=== PATIENT | male | born 1980 | race Two or more races ===

== ENCOUNTER 2019-10-13 12:58 | Inpatient (IN) | payer BC ==
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
[2019-10-13] MEDS ORDERED: IBUPROFEN 400 MG TABLET (FP) PO PRN (14:21)
[2019-10-13] MEDS ORDERED: MENTHOL/PHENOL 1 EACH UD MM PRN (14:21)
[2019-10-13] MEDS ORDERED: MAG HYDROX/AL HYDROX/SIMETH 30 ML UNIT-DOSE CUP PO PRN (14:21)
[2019-10-13] MEDS ORDERED: NICOTINE POLACRILEX 2 MG GUM BUC PRN (14:21)
[2019-10-13] MEDS ORDERED: BISMUTH SUBSALICYLATE 524 MG/30 ML UD PO PRN (14:21)
[2019-10-13] MEDS ORDERED: MAGNESIUM HYDROX 2400MG/30ML ORAL SUSPENSION 30 ML CUP PO PRN (14:21)
[2019-10-13] MEDS ORDERED: MAGNESIUM CITRATE 300 ML BOTTLE PO PRN (14:21)
[2019-10-13] MEDS ORDERED: ONDANSETRON *ODT* 4 MG TABLET SL PRN (14:21)
[2019-10-13] MEDS ORDERED: diazePAM 5 MG TABLET PO PRN (14:21)
[2019-10-13] MEDS ORDERED: ACETAMINOPHEN 325 MG TABLET (FP) PO PRN ×2 (14:21)
[2019-10-13] MEDS ORDERED: diazePAM 5 MG TABLET PO ONE (14:45)
--- NOTE | 2019-10-13 14:52 | EKG ---
Test Reason : Blood Pressure : / mmHG Vent. Rate : 064 BPM Atrial Rate : 064 BPM P-R Int : 132 ms QRS Dur : 084 ms QT Int : 430 ms P-R-T Axes : 062 100 064 degrees QTc Int : 443 ms NORMAL SINUS RHYTHM RIGHTWARD AXIS BORDERLINE ECG NO PREVIOUS ECGS AVAILABLE Confirmed by Michael Corey MD ([id number]) on 10/13/2019 2:51:56 PM Referred By: Confirmed By:Michael Corey MD
[2019-10-13] MEDS: hydrOXYzine PAMOATE 25 MG CAPSULE (FP) PO PRN (15:25)
[2019-10-13 17:58] LABS: HEMATOCRIT 38.5 % (35.4-49); MCH 31.5 pg (25.7-33.7); MCHC 33.6 g/dl (32.0-35.9); MEAN CELL VOLUME 93.8 fl (80-96); MEAN PLT VOLUME 7.9 fl (7.5-11.1); PLATELET COUNT 257 K/MM3 (134-434); RBC 4.11 M/mm3 (4.00-5.60); RDW 15.4 % (11.9-15.9); WHITE BLOOD COUNT 4.7 K/mm3 (4.0-10.0)
[2019-10-13 17:59] LABS: ALBUMIN 3.5 g/dl (3.4-5.0); BILIRUBIN,TOTAL 0.9 mg/dL (0.2-1); BLOOD UREA NITROGEN 10.5 mg/dL (7-18); CALCIUM 8.9 mg/dL (8.5-10.1); CREATININE 0.7 mg/dL (0.55-1.3)
[2019-10-13] MEDS: MELATONIN 5 MG TABLETS PO SCH (22:50)
[2019-10-13] MEDS: THIAMINE HCL 100 MG TABLET (FP) PO SCH (22:50)
[2019-10-13] MEDS: diazePAM 5 MG TABLET PO SCH (22:50)
[2019-10-14] MEDS: diazePAM 5 MG TABLET PO SCH ×3 (05:54→22:20)
[2019-10-14] MEDS: PRENATAL VITAMINS W/ FOLIC ACID TABLET (FP) PO SCH (09:38)
[2019-10-14] MEDS: NICOTINE 21 MG/24 HOURS TOPICAL PATCH TD SCH (09:38)
--- NOTE | 2019-10-14 11:23 | PN ---
S CIWA - CIWA Score Nausea/Vomitin-No Nausea/No Vomiting Muscle Tremors: 3 Anxiety: 3 Agitation: 1-Slight > Activity Paroxysmal Sweats: 1-Minimal Palms Moist Orientation: 0-Oriented Tacttile Disturbances: 1-Very Mild Itch/Numbness Auditory Disturbances: 0-None Visual Disturbances: 0-None Headache: 0-None Present CIWA-Ar Total Score: 9 B[facility] Progress Note (SOAP) Subjective: 39 years old male was admitted on 10/13/19 for alcohol withdrawal sx management treating with valium detox regiment feels tired prefers to stay in bed today that mr lowe has trouble to fall asleep last night limited conversation with staff Objective: 10/14/19 11:25 Vital Signs - 24 hr 10/13/19 10/13/19 10/13/19 14:05 14:18 16:41 Temperature 98.4 F 97.5 F L 97.1 F L Pulse Rate 90 67 70 Respiratory 18 18 18 Rate Blood Pressure 155/97 157/93 126/69 O2 Sat by Pulse 96 Oximetry (%) 10/13/19 10/14/19 10/14/19 20:39 06:45 08:32 Temperature 97.5 F L 97.9 F 98.6 F Pulse Rate 61 65 81 Respiratory 17 18 18 Rate Blood Pressure 146/81 146/87 129/83 O2 Sat by Pulse 97 95 Oximetry (%) Laboratory Tests 10/13/19 10/13/19 10/13/19 14:00 14:00 14:00 WBC 4.7 RBC 4.11 Hgb 13.0 Hct 38.5 MCV 93.8 MCH 31.5 MCHC 33.6 RDW 15.4 Plt Count 257 MPV 7.9 Sodium 141 Potassium 4.0 Chloride 105 Carbon Dioxide 29 Anion Gap 7 L BUN 10.5 Creatinine 0.7 Est GFR (CKD-EPI)AfAm 135.86 Est GFR (CKD-EPI)NonAf 117.22 Random Glucose 116 H Calcium 8.9 Total Bilirubin 0.9 AST 194 H ALT 176 H Alkaline Phosphatase 241 H Total Protein 8.0 Albumin 3.5 Syphilis Serology Non-reactive COVID-19 (CHRISTIANO) 10/13/19 14:50 WBC RBC Hgb Hct MCV MCH MCHC RDW Plt Count MPV Sodium Potassium Chloride Carbon Dioxide Anion Gap BUN Creatinine Est GFR (CKD-EPI)AfAm Est GFR (CKD-EPI)NonAf Random Glucose Calcium Total Bilirubin AST ALT Alkaline Phosphatase Total Protein Albumin Syphilis Serology COVID-19 (CHRISTIANO) Not detected ast elevation 10/14/19 11:28 repeat ast Assessment: 10/14/19 11:28 alcohol withdrawal Plan: valium regiment
--- NOTE | 2019-10-14 11:59 | CONSULT ---
[facility] Psychiatric Consult - Data Date of interview: 10/14/19 Admission source: [facility] Identifying data: Patient is a 39 year old single male, father of two, unemployed, homeless, and is not currently supported with financial assistance. This is patient's first admission to detox at [facility]. Patient admitted to for alcohol dependence. Substance Abuse History: Smoking Cessation. Smoking history: Current every day smoker. Have you smoked in the past 12 months: Yes. Aproximately how many cigarettes per day: 10. Hx Chewing Tobacco Use: No. Initiated information on smoking cessation: Yes. 'Breaking Loose' booklet given: 10/13/19. - Substance & Tx. History. Hx Alcohol Use: Yes. Hx Substance Use: Yes. Substance Use Type: Alcohol, Marijuana. Hx Substance Use Treatment: Yes (2yrs ago detox at [facility]). - Substances abused. Alcohol. Substance route: Oral. Frequency: Daily. Amount used: 1 liter of vodka. Age of first use: 5. Date of last use: 10/12/19. Marijuana/Hashish. Substance route: Oral. Frequency: 1-3 times last 30 days. Amount used: 1 joint. Age of first use: 13. Date of last use: 10/12/19 Medical History: Pancreatitis,Cirrhosis, Seizure (alcohol related seizures) Psychiatric History: Patient presents as a fatigue and mildly lethargic. Patient unable to provide a cohesive psychiatric history. Mr. Mistry reports a history of multiple psychiatric hospitalizations at several hospitals including but not limited to [facility] + [facility] + [facility]. Patient unable to recall his most recent psychiatric hospitalization. Mr. Mistry reports a diagnosis of Schizophrenia + Bipolar disorder. Reports past treatment with risperdal and other psychotropic agents he can't recall. Patient is totally lost in follow up care and is not interested in resuming psychotropic medications. History of several suicide attempts via overdose and asphyxiation. At present patient reports feeling tired and sleepy. He denies suicidal/ homicidal ideation, auditory/ visual hallucinations. Physical/Sexual Abuse/Trauma History: Not discussed. Mental Status Exam - Mental Status Exam Alert and Oriented to: Time, Place, Person Cognitive Function: Good Patient Appearance: Unkempt Mood: Withdrawn Affect: Mood Congruent Patient Behavior: Sedated, Fatigued Speech Pattern: Delayed Voice Loudness: Mildly Soft/Quiet Thought Process: Goal Oriented Thought Disorder: Not Present Hallucinations: Denies Suicidal Ideation: Denies Homicidal Ideation: Denies Insight/Judgement: Poor Sleep: Fair Appetite: Fair Muscle strength/Tone: Normal Gait/Station: Other (Gait not observed.) Psychiatric Findings - Problem List ([place] 1, 2,3) (1) Alcohol dependence with withdrawal, uncomplicated Current Visit: Yes Status: Acute (2) Nicotine dependence Current Visit: Yes Status: Acute Qualifiers: Nicotine product type: cigarettes Substance use status: uncomplicated Qualified Code(s): F17.210 - Nicotine dependence, cigarettes, uncomplicated (3) Schizoaffective disorder Current Visit: No Status: Chronic Comment: self reports - Initial Treatment Plan Initial Treatment Plan: Psychoeducation provided. Detoxification in progress. Observation.
[2019-10-14] MEDS: hydrOXYzine PAMOATE 25 MG CAPSULE (FP) PO PRN (17:40)
[2019-10-14] MEDS: MELATONIN 5 MG TABLETS PO SCH (22:20)
[2019-10-14] MEDS: THIAMINE HCL 100 MG TABLET (FP) PO SCH (22:20)
[2019-10-15] MEDS: diazePAM 5 MG TABLET PO SCH ×2 (05:56→17:41)
[2019-10-15] MEDS: PRENATAL VITAMINS W/ FOLIC ACID TABLET (FP) PO SCH (10:04)
[2019-10-15] MEDS: NICOTINE 21 MG/24 HOURS TOPICAL PATCH TD SCH (10:04)
--- NOTE | 2019-10-15 10:48 | PN ---
S CIWA - CIWA Score Nausea/Vomitin-No Nausea/No Vomiting Muscle Tremors: None Anxiety: 2 Agitation: 0-Normal Activity Paroxysmal Sweats: 2 Orientation: 0-Oriented Tacttile Disturbances: 0-None Auditory Disturbances: 0-None Visual Disturbances: 0-None Headache: 0-None Present CIWA-Ar Total Score: 4 BHS Progress Note (SOAP) Subjective: c/o mild withdrawal symptoms. Objective: 10/15/19 10:47 Vital Signs 10/15/19 10/15/19 07:02 08:45 Temperature 96.9 F L 98.1 F Pulse Rate 84 80 Respiratory 18 18 Rate Blood Pressure 103/65 128/75 O2 Sat by Pulse 96 Oximetry (%) Assessment: 10/15/19 10:47 AOX3, in no acute respiratory distress. Full ROM, ambulating in the unit. Mild Withdrawal symptoms. For d/c tomorrow. Plan: continue detox. D/C in AM.
[2019-10-15] MEDS: METHOCARBAMOL 500 MG TABLET PO PRN ×2 (10:58→17:41)
[2019-10-15 17:25] VITALS: BP 130/86; PULSE 66; TEMP 97.7
--- NOTE | 2019-10-15 20:06 | DS ---
[facility] Detox Discharge Summary Admission Date: 10/13/19 Discharge Date: 10/15/19 - History Additional Comments: Patient is being discharged to home. He was scheduled for discharge in the morning but wants to leave now because his girlfriend is here to pick him up. He is medically stable, alert and oriented x 3, in no acute distress and vital signs stable. Patient was detoxed safely and responded well. He has no home medication and is being discharged to home. Pertinent Past History: Alcohol dependence Alcoholic cirrhosis of the liver Nicotine dependence Schizo-affective disorder - Physical Exam Results Vital Signs: Vital Signs Temperature 97.7 F 10/15/19 16:51 Pulse Rate 66 10/15/19 16:51 Respiratory Rate 17 10/15/19 16:51 Blood Pressure 130/86 10/15/19 16:51 O2 Sat by Pulse Oximetry (%) 96 10/15/19 12:40 Laboratory Last Values WBC 4.7 K/mm3 (4.0-10.0) 10/13/19 14:00 RBC 4.11 M/mm3 (4.00-5.60) 10/13/19 14:00 Hgb 13.0 GM/dL (11.7-16.9) 10/13/19 14:00 Hct 38.5 % (35.4-49) 10/13/19 14:00 MCV 93.8 fl (80-96) 10/13/19 14:00 MCH 31.5 pg (25.7-33.7) 10/13/19 14:00 MCHC 33.6 g/dl (32.0-35.9) 10/13/19 14:00 RDW 15.4 % (11.9-15.9) 10/13/19 14:00 Plt Count 257 K/MM3 (134-434) 10/13/19 14:00 MPV 7.9 fl (7.5-11.1) 10/13/19 14:00 Sodium 141 mmol/L (136-145) 10/13/19 14:00 Potassium 4.0 mmol/L (3.5-5.1) 10/13/19 14:00 Chloride 105 mmol/L (98-107) 10/13/19 14:00 Carbon Dioxide 29 mmol/L (21-32) 10/13/19 14:00 Anion Gap 7 MMOL/L (8-16) L 10/13/19 14:00 BUN 10.5 mg/dL (7-18) 10/13/19 14:00 Creatinine 0.7 mg/dL (0.55-1.3) 10/13/19 14:00 Est GFR (CKD-EPI)AfAm 135.86 10/13/19 14:00 Est GFR (CKD-EPI)NonAf 117.22 10/13/19 14:00 Random Glucose 116 mg/dL (74-106) H 10/13/19 14:00 Calcium 8.9 mg/dL (8.5-10.1) 10/13/19 14:00 Total Bilirubin 0.9 mg/dL (0.2-1) 10/13/19 14:00 AST 194 U/L (15-37) H 10/13/19 14:00 ALT 176 U/L (13-61) H 10/13/19 14:00 Alkaline Phosphatase 241 U/L (45-117) H 10/13/19 14:00 Total Protein 8.0 g/dl (6.4-8.2) 10/13/19 14:00 Albumin 3.5 g/dl (3.4-5.0) 10/13/19 14:00 Syphilis Serology Non-reactive (NONREACTIVE) 10/13/19 14:00 COVID-19 (CHRISTIANO) Not detected (Not Detected) 10/13/19 14:50 Labs reviewed with patient Pertinent Admission Physical Exam Findings: Alcohol withdrawal symptoms - Medication Discharge Medications: Ambulatory Orders NK [No Known Home Medication] 10/13/19 - Diagnosis (1) Alcohol dependence with withdrawal, uncomplicated Status: Chronic (2) Nicotine dependence Status: Chronic Qualifiers: Nicotine product type: cigarettes Substance use status: uncomplicated Qualified Code(s): F17.210 - Nicotine dependence, cigarettes, uncomplicated (3) Alcoholic cirrhosis of liver Status: Chronic Qualifiers: Ascites presence: without ascites Qualified Code(s): K70.30 - Alcoholic cirrhosis of liver without ascites (4) Schizoaffective disorder Status: Chronic - AMA Did Patient Leave Against Medical Advice: No
[2019-10-16] MEDS ORDERED: diazePAM 5 MG TABLET PO ONE (06:00)
== END 2019-10-15 20:30 | disposition home or self-care (01) | DRG 775 ==
LOC: YASAS 12:58 → Y3N 14:14
PROVIDERS: ADMIT Allergy & Immunology; ATTEND Allergy & Immunology
PROC: HZ2ZZZZ Detoxification Services for Substance Abuse Treatment (ICD-10-PCS; principal; 2019-10-13)
DX: F10.230 Alcohol dependence with withdrawal, uncomplicated (principal); F12.10 Cannabis abuse, uncomplicated; F17.210 Nicotine dependence, cigarettes, uncomplicated; F25.9 Schizoaffective disorder, unspecified; F31.9 Bipolar disorder, unspecified; K70.30 Alcoholic cirrhosis of liver without ascites; G40.909 Epilepsy, unspecified, not intractable, without status epilepticus; Z87.19 Personal history of other diseases of the digestive system; Z56.0 Unemployment, unspecified; Z59.0 Homelessness
CPT/HCPCS: 36415; 80053; 85027; 86780; 93005; 93010; U0003